=== PATIENT | female | born 1985 | race Caucasian/White ===

== ENCOUNTER → 2020-01-12 16:20 | Outpatient (BNVA) | payer OTHER, SELFPAY | PROVIDERS: Family Provider Electrodiagnostic Medicine; PCP Electrodiagnostic Medicine; Visit Provider Nurse Practitioner Women's Health | DX: R23.2 Flushing (principal); Z01.419 Encounter for gynecological examination (general) (routine) without abnormal findings; K21.9 Gastro-esophageal reflux disease without esophagitis; F32.9 Major depressive disorder, single episode, unspecified; Z86.73 Personal history of transient ischemic attack (TIA), and cerebral infarction without residual deficits | CPT/HCPCS: 80048; 84443; 85027 ==

== ENCOUNTER → 2020-12-26 11:23 | Outpatient (BNVA) | payer OTHER, SELFPAY | PROVIDERS: Family Provider Electrodiagnostic Medicine; PCP Electrodiagnostic Medicine; Visit Provider Nurse Practitioner Family | DX: Z20.828 Contact with and (suspected) exposure to other viral communicable diseases (principal) | CPT/HCPCS: 87400; 87635 ==

== ENCOUNTER 2022-08-28 12:00 | Outpatient (CLI) | payer OTHER, SELFPAY | END 2022-08-28 12:01 | disposition home or self-care (01) | LOC: SLEEP 08-29 09:13 | PROVIDERS: Family Provider Electrodiagnostic Medicine; PCP Electrodiagnostic Medicine; Visit Provider Electrodiagnostic Medicine | DX: G47.10 Hypersomnia, unspecified (principal) | CPT/HCPCS: G0399 ==

== ENCOUNTER → 2023-05-20 13:30 | Outpatient (BNVA) | payer OTHER, SELFPAY | PROVIDERS: Family Provider Electrodiagnostic Medicine; PCP Electrodiagnostic Medicine; Visit Provider Nurse Practitioner Women's Health | DX: Z01.419 Encounter for gynecological examination (general) (routine) without abnormal findings (principal); N76.0 Acute vaginitis; R10.32 Left lower quadrant pain; B96.89 Other specified bacterial agents as the cause of diseases classified elsewhere; Z11.3 Encounter for screening for infections with a predominantly sexual mode of transmission; Z12.4 Encounter for screening for malignant neoplasm of cervix | CPT/HCPCS: 87491; 87591; 87624; 87661 ==

== ENCOUNTER → 2023-06-11 10:59 | Outpatient (BNVA) | payer OTHER, SELFPAY | PROVIDERS: Family Provider Electrodiagnostic Medicine; PCP Electrodiagnostic Medicine; Visit Provider Nurse Practitioner Women's Health | DX: N83.292 Other ovarian cyst, left side (principal); R10.32 Left lower quadrant pain; N93.9 Abnormal uterine and vaginal bleeding, unspecified | CPT/HCPCS: 76830 ==

== ENCOUNTER → 2023-08-11 15:26 | Outpatient (BNVA) | payer OTHER, SELFPAY | PROVIDERS: Family Provider Electrodiagnostic Medicine; PCP Electrodiagnostic Medicine; Visit Provider Nurse Practitioner Women's Health | DX: N83.209 Unspecified ovarian cyst, unspecified side (principal) | CPT/HCPCS: 76830 ==

== ENCOUNTER 2024-02-23 11:05 | Outpatient (CLI) | payer OTHER, SELFPAY ==
--- NOTE | 2024-02-23 11:08 | MM_ITS ---
WS: [id number] SCREENING DIGITAL BREAST TOMOSYNTHESIS MAMMOGRAM WITH CAD HISTORY: SCREENING COMPARISON: None available. Bilateral CC and MLO with tomosynthesis and synthetic mammography submitted. Computer aided detection analyzed. Breast composition: There are scattered areas of fibroglandular density. There is a very slight asymm etry in the posterior lateral RIGHT breast measuring approximately 1.2 cm. There is no distortion or calcification. No prior studies for comparison. LEFT breast is negative. IMPRESSION: MM/[place] [id number] BI-RADS: 0-Incomplete: Need additional imaging evaluation FOLLOW UP: Need Additional Imaging RIGHT breast: Spot compression views (CC and MLO). True ML. Ultrasound to follo w if abnormality persists.
== END 2024-02-23 11:06 | disposition home or self-care (01) ==
LOC: RAD 11:05
PROVIDERS: Family Provider Electrodiagnostic Medicine; PCP Electrodiagnostic Medicine; Visit Provider Electrodiagnostic Medicine
DX: Z12.31 Encounter for screening mammogram for malignant neoplasm of breast (principal); R92.322 Mammographic fibroglandular density, left breast
CPT/HCPCS: 77063; 77067

== ENCOUNTER 2024-03-15 10:08 | Outpatient (CLI) | payer OTHER, SELFPAY ==
--- NOTE | 2024-03-15 10:15 | MM_ITS ---
WS: [id number] ADDITIONAL VIEWS RIGHT MAMMOGRAM WITH DIGITAL BREAST TOMOSYNTHESIS. RIGHT BREAST ULTRASOUND HISTORY: ABNORMAL MAMMOGRAM COMPARISON: 02/23/2024 RIGHT MAMMOGRAM: Spot compression views and true ML with digital breast tomosynthesis and SM. The asymmetry persists but becomes less masslike in the posterior lateral RIGHT breast. There is stil l dense fibroglandular tissue which is slightly asymmetric. Ultrasound will be performed also. RIGHT BREAST ULTRASOUND 2-D and color Doppler imaging submitted. No soft tissue mass or shadowing is noted in the RIGHT breast from 8-12 o'clock. There is very dense fibroglandular tissue. IMPRESSION: MM/[place] [id number] BI-RADS: 2-Benign FOLLOW UP: 1 Year Follow-up
== END 2024-03-15 10:09 | disposition home or self-care (01) ==
LOC: RAD 10:08
PROVIDERS: PCP Electrodiagnostic Medicine; Visit Provider Electrodiagnostic Medicine
DX: R92.8 Other abnormal and inconclusive findings on diagnostic imaging of breast (principal); R92.321 Mammographic fibroglandular density, right breast
CPT/HCPCS: 76642; 77061; G0279

== ENCOUNTER 2025-03-15 11:09 | Outpatient (CLI) | payer OTHER, SELFPAY ==
--- NOTE | 2025-03-15 11:20 | MM_ITS ---
WS: [id number] BILATERAL 3D TOMOSYNTHESIS DIGITAL SCREENING MAMMOGRAPHY WITH CAD CLINICAL INFORMATION: SCREENING HISTORY: Screening mammogram. No current complaints. COMPARISON: 2023 TECHNIQUE: Bilateral CC and MLO views. FINDINGS: Scattered fibroglandular densities bilaterally. No suspicious focal mass, asymmetry, calcifications, or architectural distortion. No evidence of malignancy. MM/MM scr BI tomosynthesis [id number] IMPRESSION: DENSITY: There are scattered areas of fibroglandular density. BI-RADS: 1 - Negative. FOLLOW UP: 1 Year Follow-up Recommend return to annual screening mammography.
== END 2025-03-15 11:10 | disposition home or self-care (01) ==
LOC: MOBLMAM 11:10
PROVIDERS: PCP Electrodiagnostic Medicine; Visit Provider Electrodiagnostic Medicine
DX: Z12.31 Encounter for screening mammogram for malignant neoplasm of breast (principal); R92.323 Mammographic fibroglandular density, bilateral breasts
CPT/HCPCS: 77063; 77067